=== PATIENT | female | born 1975 | race Caucasian/White ===

== ENCOUNTER 2021-03-06 00:52 | Day surgery (SDC) | payer BC, SELFPAY ==
[2021-02-27 09:23] VITALS: BMI 28.8
[2021-03-06] MEDS: ACETAMINOPHEN 500 MG TABLET 1000 MG PO (06:29)
[2021-03-06] MEDS: LACTATED RINGERS 1,000 ML 30 ML IV CONT (06:40)
--- NOTE | 2021-03-06 06:50 | P.PNAN_ITS ---
Anes - Initial Pre Proc Eval Procedure: Operation Date: 03/06/21 07:30 Proposed Procedures p Hysteroscopy, Dilation and Curettage - Micki Waldrop MD Date/Time: 03/06/21 06:50 Surgeon: Micki Waldrop MD Pre Op Diagnosis: menorrhaghia Patient Data Age: 45 Gender: F Height: 1.56 m Weight: 70.5 kg Allergies Allergy/AdvReac Type Severity Reaction Status Date / Time erythromycin base Allergy Mild Rash Verified 03/06/21 06:14 Home Medications Medication Instructions Recorded Confirmed Type Lactobac 40-Bifido 3-S.thermop 1 cap PO QAM 02/27/21 03/06/21 History [Probiotic] amlodipine 2.5 mg PO QAM 02/27/21 03/06/21 History buspirone 15 mg PO QAM 02/27/21 03/06/21 History cetirizine [Zyrtec] 10 mg PO DAILY 02/27/21 03/06/21 History cider [id number] 1 tablet PO DAILY 02/27/21 03/06/21 History [Apple Cider Vinegar Complex] dicyclomine 10 mg PO QAM 02/27/21 03/06/21 History ergocalciferol (vitamin D2) 1,250 mcg PO WEEKLY 02/27/21 03/06/21 History levothyroxine 25 mcg PO QAM 02/27/21 03/06/21 History multivitamin 1 tablet PO QAM 02/27/21 03/06/21 History omega-3 fatty acids-vitamin E 1 cap PO QAM 02/27/21 03/06/21 History [Fish Oil] Patient hx anesthesia problems: none Family hx anesthesia problems: none [facility] Past Medical History Medical History (Updated 03/06/21 @ 06:52 by Aftab eMrritt MD) Anxiety Dysfunctional uterine bleeding HTN (hypertension) Hypothyroidism IBS (irritable bowel syndrome) Social History Social History Years smoked: 15 Smoking status: Former smoker Smoking end date: 02/27/15 Living arrangements: with family Spiritual care concerns: No Anes - Eval Final PreProcedure Day of Procedure 03/06/21 06:50 Patient weight: overweight Heart: regular rate and rhythm Lungs: clear to auscultation and normal air movement Airway: Mallampati scale class II Neurological: alert and oriented Last oral intake: >/= 8 hours ASA classification: II Emergent: no Anesthetic plan: proceed Anesthesia type and monitoring: general GIVS and LMA Informed Consent: The patient's anesthetic plan and its attendant risks and benefits were discussed with the patient/family/POA. Questions were solicited and answers provided to the satisfaction of the patient/family/POA.
[2021-03-06 06:59] VITALS: BP 143/75; PULSE 79; TEMP 36.6; O2SAT 100
[2021-03-06] MEDS: SCOPOLAMINE 1.5 MG PATCH TRANSDERM (07:08)
--- NOTE | 2021-03-06 07:11 | WPDHPUPDATE1 ---
History and Physical Update Update Date/Time: 03/06/21 07:11 History and Physical has been reviewed, including an updated exam of the patient. There are NO changes in the patient's condition. Risks, benefits, and alternatives have been discussed and questions answered. Patient agrees to proceed with procedure.
--- NOTE | 2021-03-06 07:11 | PM.HPGS ---
History of Present Illness History of Present Illness Consent: Risks, benefits, and alternatives have been discussed and questions answered. Patient agrees to proceed with procedure. Chief complaint: menorrhaghia Narrative: Karen Morel is a 45 year old female with a 4 month history irregular cycles. Patient has had cycles every 2 to 4 weeks and has skipped 1 cycle. She is also having breakthrough bleeding several times per week. It was recommended to proceed with workup in the operating room with D&C hysteroscopy. 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 Risks of the procedure including infection, bleeding, and perforation were reviewed. Difficulty getting in to 1 side or the other was also discussed. Possible pathology was reviewed. Patient voices understanding and agrees to proceed. Review of Systems Review of Systems: not repeated day of surgery; patient states no changes in status No significant review of systems other than history of present illness PMFSH Past Medical History Medical History (Updated 03/06/21 @ 07:15 by Micki Waldrop MD) Anxiety Dysfunctional uterine bleeding HTN (hypertension) Hypothyroidism IBS (irritable bowel syndrome) Surgical History Surgical History (Updated 03/06/21 @ 07:14 by Micki Waldrop MD) History of Right side History of tonsillectomy Social History Social History Years smoked: 15 Smoking status: Former smoker Smoking end date: 02/27/15 Living arrangements: with family Spiritual care concerns: No Meds Home Medications and Allergies Home Medications Medication Instructions Recorded Confirmed Type Lactobac 40-Bifido 3-S.thermop 1 cap PO QAM 02/27/21 03/06/21 History [Probiotic] amlodipine 2.5 mg PO QAM 02/27/21 03/06/21 History buspirone 15 mg PO QAM 02/27/21 03/06/21 History cetirizine [Zyrtec] 10 mg PO DAILY 02/27/21 03/06/21 History cider [id number] 1 tablet PO DAILY 02/27/21 03/06/21 History [Apple Cider Vinegar Complex] dicyclomine 10 mg PO QAM 02/27/21 03/06/21 History ergocalciferol (vitamin D2) 1,250 mcg PO WEEKLY 02/27/21 03/06/21 History levothyroxine 25 mcg PO QAM 02/27/21 03/06/21 History multivitamin 1 tablet PO QAM 02/27/21 03/06/21 History omega-3 fatty acids-vitamin E 1 cap PO QAM 02/27/21 03/06/21 History [Fish Oil] Allergies Allergy/AdvReac Type Severity Reaction Status Date / Time erythromycin base Allergy Mild Rash Verified 03/06/21 06:14 Vital Signs Vital Signs - 24 hr 03/06/21 06:59 Temperature 97.9 F Pulse Rate 79 Blood Pressure 143/75 H Pulse Oximetry 100 Exam Const: General: healthy appearing and alert Orientation/consciousness: patient oriented x3 Resp: Effort & Inspection: normal respiratory effort Auscultation: clear to auscultation bilaterally Cardio: Rate: regular rate Rhythm: regular rhythm GI: GI Palp: Yes Soft to palpation, No Tenderness to palpation present (GI) and No Palpable mass present : External Female Exam: normal external appearance Speculum Exam - Vagina: normal vaginal discharge and other (Small upper vaginal septum) Speculum Exam - Cervix: Other cervical findings present (Two small cervix) Bimanual exam- vagina & uterus: uterine size normal and consistency normal Bimanual Exam- Adnexa, other: normal adnexae and No adnexal tenderness Neuro: General: patient oriented x3 Assessment and Plan Assessment and plan (1) Dysfunctional uterine bleeding: Code(s): N93.8 - Other specified abnormal uterine and vaginal bleeding Status: Acute Assessment and Plan: Plan to proceed with D&C hysteroscopy (2) Bicornuate uterus, complete: Code(s): Q51.3 - Bicornate uterus Status: Acute
[2021-03-06 08:04] VITALS: BP 113/86; PULSE 89; RESP 12
--- NOTE | 2021-03-06 08:05 | W.PM.PROC2 ---
Procedure Note - Detailed Date of Procedure 03/06/21 Pre-op Diagnosis menorrhaghia Uterine didelphys Post-op Diagnosis same Procedure Performed D&C hysteroscopy x2 Surgeon Micki Waldrop MD Anesthesia MAC and local Findings 2 cervices; Fairly normal-appearing right cervix with a approximately 4cm vaginal septum and a very small left cervix; normal appearing endometrium Description of Procedure The patient was taken to the operating room and placed under anesthesia in the dorsal lithotomy position. She was prepped and draped in the usual sterile fashion. Bulverde speculum was placed in the vagina and the right cervix is visible and grasped with a tenaculum. The cervix is injected with 1% lidocaine without epinephrine. The os Finders are used and the uterus then sounded to 8cm. The cervix is serially dilated with Hegar. The diagnostic hysteroscope was placed with a normal-appearing endometrium and what appears to be secretory phase. No discrete lesions were noted. The hysteroscope was removed and the medium sharp curette used to sharply curette the right uterus until a good uterine cry was noted in all areas. The left cervix was then attempted to be found with the speculum and the Graves speculum was noted to be too wide. A Mejia speculum is obtained. The septum is grasped with an Allis clamp and pulled to the patient's right allowing partial visualization of the left cervix which is grasped with a tenaculum. The cervix is pulled down and the anterior lip was then able to be grasped with a 2nd tenaculum. The cervix is injected with 1% lidocaine without epinephrine. The posterior tenaculum was removed. The uterus is sounded to 8cm and the cervix serially dilated. The diagnostic hysteroscope was then placed on the left and the lining appears thickened generally. No discrete lesions are noted. The hysteroscope was removed and the medium sharp curette is used to sharply curette the left uterus until a good uterine cry was noted in all areas. All instruments were then removed and the patient awakened from anesthesia. Sponge, needle, and instrument counts are correct per the OR staff. Estimated Blood Loss 25 Drains No Packing No Pathology yes (Left and right uterine curettings) Complications No immediate complications Condition stable Disposition PACU
[2021-03-06 08:15] VITALS: BP 114/79; PULSE 81; RESP 14
[2021-03-06 08:30] VITALS: BP 135/87; PULSE 81; RESP 16
[2021-03-06] MEDS: oxyCODONE HCL (*CRX) 5 MG TAB IR PO (08:33)
[2021-03-06 08:50] VITALS: BP 133/91; PULSE 80; RESP 14
== END 2021-03-06 09:06 | disposition home or self-care (01) ==
PROVIDERS: PCP Family Medicine; Visit Provider Obstetrics & Gynecology Gynecology
PROC: 0U5B8ZZ Destruction of Endometrium, Via Natural or Artificial Opening Endoscopic (ICD-10-PCS; CPT 58563; principal; 2021-03-06 07:30)
DX: N92.0 Excessive and frequent menstruation with regular cycle (principal); Q51.28 Other and unspecified doubling of uterus; I10 Essential (primary) hypertension; E03.9 Hypothyroidism, unspecified; K58.9 Irritable bowel syndrome, unspecified; F41.9 Anxiety disorder, unspecified; Z87.891 Personal history of nicotine dependence
CPT/HCPCS: 58558; 88305; A9270; J2250; J2704; J3010; J7030; J7120